=== PATIENT | male | born 1960 | race Caucasian/White ===

== ENCOUNTER → 2019-03-29 07:15 | Day surgery (SDC) | payer OTHER ==
--- NOTE | 2019-03-21 15:01 | HP ---
AMENDED REPORT NOW INCLUDES DESIGNATED COSIGNER - ESIGNED BEFORE ADJUSTMENTS CC: Dr. Orlin Trotter * PREOPERATIVE HISTORY AND PHYSICAL: DATE OF ADMISSION/SURGERY: 03/29/19 This patient is scheduled for same-day surgery admission by Dr. Rodriguez on 03/29/19. DATE OF PREOPERATIVE HISTORY AND PHYSICAL: 03/21/19. ATTENDING SURGEON: Dr. Alistair Rodriguez * (dictated by Yolanda Harrington NP). CHIEF COMPLAINT: Bilateral inguinal hernias. HISTORY OF PRESENT ILLNESS: The patient is a 58-year-old male who [facility] for evaluation regarding a right inguinal hernia. The patient states that he has had a right groin bulge for several years ; however, 2 weeks ago, he lifted something heavy and the bulge was painful for the first time. The bulge does reduce spontaneously. He denies any complaints of dysuria and has regular formed bowel movements without any change in his bowel habits. Dr. Rodriguez examined the patient and noticed bilateral inguinal hernias, right greater than left. Dr. Rodriguez has therefore recommended laparoscopic bilateral inguinal hernia repair with mesh. He described the nature of the surgical procedure, the rationale for the procedure, the relevant risks and benefits, and today, I reviewed the expected postoperative care and recovery. The patient has had a chance to ask questions and stated that he understands the information and is satisfied with the answers given to his questions. He will sign surgical consent on the day of surgery. PAST MEDICAL HISTORY: Significant for hypertension. PAST SURGICAL HISTORY: Multiple procedures for trigger fingers on both hands; thoracic surgery in childhood related to complications of staphylococcus pneumonia. MEDICATIONS: 1. Diovan 160 mg p.o. daily. 2. Simvastatin 20 mg p.o. daily. 3. Aspirin 81 mg p.o. daily, and he will hold that for 5 days preoperatively. 4. Fish oil 1200 mg p.o. daily, and he will hold that for 5 days preoperatively. ALLERGIES: No known drug allergies. FAMILY HISTORY: Father with a history of myocardial infarction. Mother is alive and generally well. No bleeding tendencies or clotting disorders in the family. The patient states that his sister has had slow recovery from general anesthesia. 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 He is a nonsmoker. He drinks 5 to 6 alcoholic beverages per week on average and denies the use of other substances. REVIEW OF SYSTEMS: Constitutional: No fevers, chills, excessive fatigue, or weight loss. Endocrine: No diabetes or thyroid disease. Hematologic: No easy bruising or bleeding, no history of blood transfusions. Respiratory: No dyspnea on exertion. No cough. Cardiovascular: No anginal chest pain or palpitations. Gastrointestinal: No nausea, vomiting, diarrhea, GI bleeding, constipation, or change in bowel habits. Genitourinary: Enlarged prostate, currently being followed by Dr. Babin. Musculoskeletal: Normal strength and tone. Neurologic: No headache, blurred vision, or areas of focal weakness. General: No previous anesthesia complications. No bleeding tendencies. No history of deep vein thrombosis or pulmonary embolism. He has never received a blood transfusion. PHYSICAL EXAMINATION GENERAL SURVEY: The patient is a 58-year-old male, well developed, well nourished, in no acute distress. VITAL SIGNS: Height 71.5 inches, weight 196 pounds. Blood pressure 120/82, pulse 68 and regular, respiratory rate 16, temperature 97.5 tympanic. HEENT: Benign. NECK: Supple. No cervical lymphadenopathy. LUNGS: Breath sounds bilaterally clear and equal. HEART: Regular rate and rhythm. No murmurs or rubs appreciated. ABDOMEN: Active bowel sounds. Soft, nondistended, nontender throughout. Small umbilical hernia palpated with the patient coughing. No other masses or organomegaly. Inguinal exam was done by Dr. Rodriguez and revealed bilateral inguinal hernias, right greater than left, that are reducible. BACK: No CVA tenderness. There is a well-healed surgical scar over the right scapular area. GENITALIA: Testicles are normally descended without lesion. RECTAL: Exam deferred. EXTREMITIES: Warm without edema or skin ulceration. NEUROLOGIC: Alert and oriented x3. Steady gait. SKIN: Warm, dry, intact. IMPRESSION: Bilateral inguinal hernias. PLAN: Same-day surgery admission to Dr. Rodriguez's service on 03/29/19 , for laparoscopic bilateral inguinal hernia repair with mesh. FAIZAN HARRINGTON, DEBBIE [id number]/[facility] #: [id number] MARIAN
[~2019-03-29 07:15] MED LIST: Buffered Lidocaine 1% SYRIN* 1 ML/SYRINGE INTRADERM ONE; Bupivacaine 0.25% W/EPI* 10 ML SDV ONE; Dexamethasone IV* 4 MG/ML 1 ML (4 MG) ONE; DiMENhydriNATE IV* 50 MG/ML VIAL IV PUSH PRN; Glycopyrrolate IV* 0.2 MG/ML 1 ML VIAL ONE; HYDROmorphone INJ1* 1 MG/ML SYRINGE IV PRN; Ketorolac INJ* 30 MG/ML 1 ML VIAL ONE; Lactated Ringers 1000 ML Bag* 1,000 ML IV SCH; Midazolam* 1 MG/ML 5 ML VIAL (5 MG) ONE; Naloxone* 0.4 MG/ML 1 ML VIAL IV PRN; Neostigmine Methylsulfate* 1 MG/ML 10 ML VIAL (1 mg/ml) ONE; Ondansetron INJ* 2 MG/ML VIAL IV PRN; Ondansetron INJ* 2 MG/ML VIAL ONE; Propofol* 10 MG/ML 20 ML BTL ONE; Rocuronium* 10 MG/ML VIAL ONE; ceFAZolin 2 GM in NS PREMIX(*) 2 GM/100 ML BAG IVPB ONE; fentaNYL* 50 MCG/ML 2 ML VIAL (100 MCG VIAL) IV PRN; fentaNYL* 50 MCG/ML 2 ML VIAL (100 MCG VIAL) ONE; oxyCODONE/Acetamin 5/325 MG* TAB ONE; oxyCODONE/Acetamin 5/325 MG* TAB PO PRN
[2019-03-29 12:59] VITALS: BP 117/83
--- NOTE | 2019-03-29 23:17 | OP ---
CC: Dr. Orlin Trotter * DATE OF OPERATION: 03/29/19 - [facility] DATE OF : 56 SURGEON: Alistair Rodriguez MD STAGE SET UP WORKER: Yolanda Wallace NP ANESTHESIOLOGIST: Dr. Samano. ANESTHESIA: General anesthesia. PRE-OP DIAGNOSIS: Bilateral inguinal hernia. POST-OP DIAGNOSIS: Bilateral inguinal hernia. OPERATIVE PROCEDURE: Laparoscopic bilateral inguinal hernia repair with mesh. ESTIMATED BLOOD LOSS: Minimal. FLUIDS: Minimal crystalloid fluid given. SPECIMEN: None. DRAINS: None. CATHETER: Garcia catheter placed at the time of surgery and removed at the end of surgery. COMPLICATIONS: None. DESCRIPTION OF PROCEDURE: The patient was identified in the preoperative area. He was marked. Consent was signed. His lower abdomen was clipped off hair. He was then taken to the operating room and placed on the operating table in supine position. Preoperative antibiotics were given. Sequential devices were placed on bilateral lower extremities. General anesthesia was induced. The patient's abdomen was prepped and draped in standard surgical fashion. A time- out was performed. An infraumbilical incision was made. This was deepened down through the anterior fascia, which was incised and the rectus pillar retracted laterally on the right side. We then entered the preperitoneal plane and blunt dissection was carried out down to the pubic symphysis. Next, a 12-mm blunt trocar was inserted and the preperitoneal space was allowed to insufflate to a pressure of 12 mmHg. The patient tolerated the insufflation well. Camera dissection was then carried out down to the pubic symphysis and cleared away at Moustapha's ligament bilaterally to make a small space to take 2 additional 5-mm trocars in the lower midline. With these trocars in place, attention was turned towards the left side. We freed up different adhesional area in the preperitoneal space with blunt dissection and then identified Moustapha's ligament on the right and left. On the left side, we were able to identify no evidence of a direct hernia. Direct space was clear. We then isolated the epigastric vessels anteriorly and opened up Bogros space laterally. Peritoneal reflection entered along the spermatic structures, which were skeletonized and the peritoneum reflected posterior as much as possible. A lipoma of the cord was then dissected free and placed posteriorly. Attention was then turned towards the right side. Dissection was carried out of this area as well with maintenance of the epigastric vessels anteriorly. We cleared off the space of Bogros laterally as well. There was no evidence of a direct hernia, but again an indirect small hernia was identified and with gentle traction was freed up from the spermatic structures, which were also skeletonized. Full myopectineal orifice was identified and was free of any peritoneum extending towards these areas and we knew we could place the mesh in safely. Next, a medium sized Bard right side mesh 3DMax was then placed into the preperitoneal space, allowed to unfurl, tacked at Moustapha's ligament and also laterally covering the myopectineal orifice. Next, a large left side 3DMax mesh was then inserted and tacked in a similar fashion, making sure that they crossed the midline. The preperitoneal space was allowed to collapse. Trocars were removed under direct vision. Next, the posterior fascia was incised at the umbilical site and entry to the abdominal cavity was made. The 12-mm blunt trocar was then inserted along with laparoscope after the abdomen was allowed to insufflate to a pressure of 15 mmHg. Once the camera was in place, there was no evidence of pneumoperitoneum. The abdomen was placed in a Trendelenburg fashion and the mesh around the right appeared intact without any curling. There was a small curl on the mesh on the left. For this reason, a 5-mm trocar was inserted and we were able to tease this into the appropriate formation at the inferior aspect of the mesh. Once we were felt comfortable with the placement, there was no evidence of injury to the peritoneum at the site of the meshes, we then allowed the abdomen to collapse. Trocars removed under direct vision. The posterior fascia was reapproximated with 2-0 Vicryl sutures and the anterior fascia closed with 0 Vicryl sutures. The wound was irrigated and all 3 incisions were reapproximated with 4-0 Monocryl subcuticular sutures followed by Steri-Strips and sterile dressing. He was woken up in the OR and transferred to the PACU in stable condition. [id number]/[facility] #: [id number] MARIAN
== END | disposition home or self-care (01) ==
LOC: OR 07:15
PROVIDERS: ATTEND Surgery
DX: K40.20 Bilateral inguinal hernia, without obstruction or gangrene, not specified as recurrent (principal); I10 Essential (primary) hypertension; E78.00 Pure hypercholesterolemia, unspecified
CPT/HCPCS: A9270-GY; C1781; J0690; J1100; J1885; J2250; J2405; J2704; J2710; J3010

== ENCOUNTER 2019-04-30 10:11 | Emergency (ER) | payer OTHER ==
--- OUTSIDE RECORDS SUMMARY | 2019-04-30 10:42 | XMS REPORT | Continuity of Care Document ---
:1960 External Reference #:[id number] Author Name Alistair Rodriguez MD, FACS (transmitted by agent of provider Norma Calzada) Address [address] [address] Care Team Providers Name Role Phone Víctor Millan MD - Gastroenterology Care Team Information Solar Installation Foreman Alistair Rodriguez MD - Surgery Care Team Information Solar Installation Foreman [phone] Problems Active Problems Provider Date Benign essential hypertension Orlin Trotter M.D. Onset: 09/16/2011 Pure hypercholesterolemia Orlin Trotter M.D. Onset: 09/16/2011 Impaired fasting glycaemia Orlin Trotter M.D. Onset: 09/16/2011 Social History Type Date Description Comments Sex Unknown Tobacco Use Start: Unknown Never Smoked Cigarettes ETOH Use Currently consumes alcohol ETOH Use Drinks 1 Alcoholic Beverage Per Day Tobacco Use Start: Unknown Patient has never smoked Recreational Drug Use Denies Drug Use Smoking Status Reviewed: 04/07/19 Patient has never smoked Exercise Type/Frequency Exercises sporadically Pt walking on occ, but not tracking time Allergies, Adverse Reactions, Alerts Description No Known Drug Allergies Medications Active Medications SIG Qnty Indications Ordering Provider Date Simvastatin 1 by mouth 90tabs Orlin Trotter, 10/30/2013 20mg Tablets every day M.D. Diovan 1 by mouth 90tabs Orlin Trotter, 10/30/2013 160mg Tablets every day M.D. Multivitamins 1 PO qd Orlin Trotter, 10/10/2007 Tablets M.D. Fish Oil 1 po qd Unknown 1200mg Capsules Asa 1 po qd Unknown 81mg History Medications Hydrocodone-Acetaminophen 1 tab by 8tabs Yolanda Walsh 03/21/2019 - 5-325mg Tablets mouth every 6 [place], BATH MIXER Unknown hours as needed for pain Medications Administered in Office Medication SIG Qnty Indications Ordering Provider Date Influenza Virus Vaccine Unknown 05/30/2015 Injection Influenza Virus Vaccine Unknown 05/30/2014 Injection Immunizations CPT Code Status Date Vaccine Lot # [id number] Given 10/30/2013 Tdap - Tetanus/Diptheria/Acellular Pertussis [id number] Given 07/02/2013 Hepatitis B Vaccine Adult Dosage [id number] Given 05/30/2013 Hepatitis B Vaccine Adult Dosage 83917 Given 05/30/2013 Hepatitis A Vaccine Adult Dosage 26641 Given 05/16/2005 Tetanus And Diptheria (Td) For Adult Use Preservative Free Vital Signs Date Vital Result Comment 04/07/2019 1:22pm Heart Rate 72 /min BP Systolic 122 mmHg BP Diastolic 74 mmHg Respiratory Rate 18 /min Body Temperature 97.2 F 03/21/2019 10:29am Weight 196.00 lb Heart Rate 68 /min BP Systolic 120 mmHg BP Diastolic 82 mmHg Respiratory Rate 16 /min Body Temperature 97.5 F Results Test Date Facility Test Result H/L Range Note Laboratory test 03/08/2019 [facility] PSA Diagnostic 8.482 ng/ mL High 0-4.0 1 [address] [place] [address] [phone] Urinalysis 01/03/2019 [facility] Urine Color Yellow Profile [address] [place] [address] [phone] Urine Appearance Clear Urine Specific [place] 1.009 Low 1.010-1.030 Urine pH 7.0 Normal 5-9 Urine Urobilinogen Negative Negative Urine Ketones Negative Negative Urine Protein Negative Negative Urine Leukocytes Negative Negative Urine Blood Negative Negative Urine Nitrite Negative Negative Urine Bilirubin Negative Negative Urine Glucose Negative Negative Laboratory 01/03/2019 [facility] TSH (Thyroid 1.57 Normal 0.34 -5.[address]) mcIU/[place] [address] [phone] Lipid Profile 12/27/2018 [facility] Triglycerides 59 mg/dL 2 (Trig/Chol/HD [address] [place] [address] [phone] Cholesterol 135 mg/dL 3 HDL Cholesterol 53.8 mg/dL 4 LDL Cholesterol 69 mg/dL 5 Comp Metabolic 12/27/2018 [facility] Sodium 136 mmol/L Normal 135-145 Panel [address] [place] [address] [phone] Potassium 4.6 mmol/L Normal 3.5-5.0 Chloride 104 mmol/L Normal 101-111 Co2 Carbon Dioxide 28 mmol/L Normal 22-32 Anion Gap 4 mmol/L Normal 2-11 Glucose 100 mg/dL Normal 70-100 Blood Urea Nitrogen 13 mg/dL Normal 6-24 Creatinine 1.03 mg/dL Normal 0.67-1.17 BUN/Creatinine Ratio 12.6 Normal 8-20 Calcium 9.5 mg/dL Normal 8.6-10.3 Total Protein 7.0 g/dL Normal 6.4-8.9 Albumin 4.5 g/dL Normal 3.2-5.2 Globulin 2.5 g/dL Normal 2-4 Albumin/Globulin Ratio 1.8 Normal 1-3 Total Bilirubin 0.60 mg/dL Normal 0.2-1.0 Alkaline Phosphatase 41 U/L Normal 34-104 Alt 11 U/L Normal 7-52 Ast 22 U/L Normal 13-39 Egfr Non- 73.7 >60 Egfr 89.1 >60 6 Laboratory 12/27/2018 [facility] PSA Screening 7.331 ng/mL High 0-4.000 7 test finding [address] [place] [address] [phone] Lyme Disease 12/27/2018 [facility] IgG Immunoblot Negative Negative AB Immunoblot [address] [facility] [place] [address] [phone] IgG detected against p45,p39 kDa IgM Immunoblot Uninterpretable Abnormal Negative 8 Lyme Disease Interpretation See Comment 9 Laboratory test 11/03/2018 [facility] PSA Diagnostic 11.540 High 0-4.0 10 finding [address] [facility] ng/[place] [address] [phone] 1 Serum levels of PSA measured using the Levi Promimic DXI Hybritech immunoassay should not be interpreted as absolute evidence of the presence or absence of disease. The PSA value should be used in conjunction with other pertinent clinical diagnostic procedures. The values obtained with different assay methods or kits cannot be used interchangeably. 2 Desirable: <150 Borderline High: 150-199 High: 200-499 Very High: >500 3 Desirable: <200 Borderline High: 200-239 High: >239 4 Low: <40 Desirable: 40-60 High: >60 5 Desirable: <100 Near Optimal: 100-129 Borderline High: 130-159 High: 160-189 Very High: >189 6 Because ethnic data is not always readily available, this report includes an eGFR for both -Americans and non- Americans. The National Kidney Disease Education Program (NKDEP) does not endorse the use of the MDRD equation for patients that are not between the ages of 18 and 70, are , have extremes of body size, muscle mass, or nutritional status, or are non- or non-. According to the National Kidney Foundation, irrespective of diagnosis, the stage of the disease is based on the level of kidney function: Stage Description GFR(mL/min/1.73 m(2)) 1 Kidney damage with normal or decreased GFR 90 2 Kidney damage with mild decrease in GFR 60-89 3 Moderate decrease in GFR 30-59 4 Severe decrease in GFR 15-29 5 Kidney failure <15 (or dialysis) 7 Serum levels of PSA measured using the Levi Promimic DXI Hybritech immunoassay should not be interpreted as absolute evidence of the presence or absence of disease. The PSA value should be used in conjunction with other pertinent clinical diagnostic procedures. The values obtained with different assay methods or kits cannot be used interchangeably. 8 Immunoblot invalid due to blurring or indistinct reactivity. 9 Due to an invalid Lyme IgM immunoblot, an interpretation cannot be provided. Please submit a new specimen. ADDITIONAL INFORMATION Per CDC criteria, the Lyme IgG Immunoblot is interpreted as positive if IgG-class antibodies are detected to >=5 B. burgdorferi proteins, and the Lyme IgM Immunoblot is interpreted as positive if IgM-class antibodies are detected to >=2 B. burgdorferi proteins. Immunoblot patterns not meeting these criteria should not be interpreted as positive. Epitopes from certain B. burgdorferi proteins (e.g., p41) are conserved across other bacteria, which may lead to the detection of IgM- and/or IgG-class antibodies on the Lyme disease immunoblots in patients without Lyme disease. Immunoblot should only be ordered on specimens that are positive or equivocal by a FDA-licensed Lyme disease antibody screening test (e.g., EIA). Results of the Lyme IgM immunoblot should not be considered in patients with >= 30 days of symptoms. Test Performed by: [facility] [address] [place] [address] 10 Serum levels of PSA measured using the Levi Promimic DXI Hybritech immunoassay should not be interpreted as absolute evidence of the presence or absence of disease. The PSA value should be used in conjunction with other pertinent clinical diagnostic procedures. The values obtained with different assay methods or kits cannot be used interchangeably. Procedures Date Code Description Status 03/29/2019 55288 Laparoscopy, Surgical Repair Initial Inguinal Hernia Completed 03/29/2019 09445 Laparoscopy, Surgical Repair Initial Inguinal Hernia Completed 03/20/2019 [id number] Colonoscopy Completed 03/07/2009 [id number] Colonoscopy Completed Medical Devices Description No Information Available Encounters Type Date Location Provider Dx Diagnosis Office Visit 02/27/2019 [facility] Alistair Rodriguez, K40.00 Bi inguinal 11:15a Of Bernarda JIMÉNEZ, [place] hernia, w obst, w/o gangrene, not spcf as recur Office Visit 02/21/2019 Bernarda Odell K40.90 Unil inguinal 10:00a Jacoby Trotter M.D. hernia, w/o obst or gangr, not spcf as recur Office Visit 01/03/2019 Bernarda Odell Z00.00 Encntr for 10:20a Jacoby Trotter M.D. general adult medical exam w/o abnormal findings I10 Essential (primary) hypertension E78.00 Pure hypercholesterolemia, unspecified R73.01 Impaired fasting glucose R97.20 Elevated prostate specific antigen [PSA] Z12.11 Encounter for screening for malignant neoplasm of colon Assessments Date Code Description Provider 04/07/2019 K40.20 Bilateral inguinal hernia, without Alistair Rodriguez MD, [place] obstruction or gangrene, not specified as recurrent 03/29/2019 K40.20 Bilateral inguinal hernia, without Yolanda Wallace , DEBBIE obstruction or gangrene, not specified as recurrent 03/29/2019 K40.20 Bilateral inguinal hernia, without Alistair Rodriguez MD, FACS obstruction or gangrene, not specified as recurrent 03/21/2019 K40.00 Bilateral inguinal hernia, with Yolanda Wallace NP obstruction, without gangren 03/21/2019 Z01.818 Encounter for other preprocedural Yolanda Wallace NP examination 02/27/2019 K40.00 Bilateral inguinal hernia, with Alistair Rodriguez MD, FACS obstruction, without gangren 02/21/2019 K40.90 Unilateral inguinal hernia, without Orlin Trotter M.D. obstruction or gangrene, 01/03/2019 Z00.00 Encounter for general adult medical Orlin Trotter M.D. examination without abno 01/03/2019 I10 Essential (primary) hypertension Orlin Trotter M.D. 01/03/2019 E78.00 Pure hypercholesterolemia, unspecified Orlin Trotter M.D. 01/03/2019 R73.01 Impaired fasting glucose Orlin Trotter M.D. 01/03/2019 R97.20 Elevated prostate specific antigen Orlin Trotter M.D. [PSA] 01/03/2019 Z12.11 Encounter for screening for malignant Orlin Trotter M.D. neoplasm of colon Plan of Treatment Future Appointment(s):07/10/2019 9:00 am - Alistair Rodriguez MD, FACS at [facility]04/07/2019 - Alistair Rodriguez MD, FACSK40.20 Bilateral inguinal hernia, without obstruction or gangrene, not specified as recurrentFollow up:3 months Goals 04/07/2019 - Alistair Rodriguez MD, FACSK40.20 Bilateral inguinal hernia, without obstruction or gangrene, not specified as recurrent no heavy lifting over 30 lbs for 2 weeks Functional Status Description No Information Available Mental Status Description No Information Available Referrals Refer to Reason for Referral Status Appt Date Alistair Rodriguez MD R inguinal hernia Sent 03/21/2019 [address] [facility] [address] [phone] Víctor Millan MD due for a repeat colon exam Received Partial 03/20/[address] [place] [address] [phone]
--- NOTE | 2019-04-30 11:20 | ED ---
Abdominal Pain/Male - HPI Summary HPI Summary: This patient is a 58 year old M presenting to [facility] accompanied by with a chief complaint of left abdominal pain since night of 04/29/19. Pt originally thought he had a bladder infection, and called his urologist. Who prescribed antibiotic and told him to go to [facility] care if the pain worsened. Today the pain had migrated to the back. Pt went to convenient care and they told him to come to the ED. Pt has not taken any antibiotics. Patient reports nml BM. Patient denies nausea, urinary symptoms. The patient rates the pain 3/10 in severity. Symptoms aggravated by palpation. Pt had a hernia surgery on 03/29/19. - History of Current Complaint Chief Complaint: EDAbdPain Stated Complaint: ABD/FLANK PAIN PER PT Time Seen by Provider: 04/30/19 10:58 Hx Obtained From: Patient Onset/Duration: Sudden Onset, Lasting Days, Still Present Timing: Constant Severity Initially: Mild Severity Currently: Mild Pain Intensity: 3 Pain Scale Used: 0-10 Numeric Location: Discrete At: LLQ Radiates: Yes Radiates to: Back Aggravating Factor(s): Other: - palpation Alleviating Factor(s): Nothing Associated Signs And Symptoms: Positive: Back Pain. Negative: Urinary Symptoms , Nausea, Diarrhea - Allergies/Home Medications Allergies/Adverse Reactions: Allergies Allergy/AdvReac Type Severity Reaction Status Date / Time No Known Allergies Allergy Verified 04/30/19 10:35 PMH/Surg Hx/FS Hx/Imm Hx Cardiovascular History: Reports: Hx Hypertension - ON MEDICATION History: Reports: Other Problems/Disorders - enlarged prostate Sensory History: Reports: Hx Contacts or Glasses - glasses Denies: Hx Hearing Aid Opthamlomology History: Reports: Hx Contacts or Glasses - glasses - Cancer History Hx Chemotherapy: No - Surgical History Surgery Procedure, Year, and Place: PREVIOUS TRIGGER FINGER SURGERIES. GANGLION CYST REMOVED. THORACIC SURGERY- RIB REMOVED AGE 10. hernia surgery, 2019 Hx Anesthesia Reactions: No Infectious Disease History: No Infectious Disease History: Denies: Traveled Outside the [place] in Last 30 Days - Family History Known Family History: Positive: Hypertension, Other - diverticulitis - Social History Lives: With Family Alcohol Use: Occasionally Substance Use Type: Reports: None Smoking Status (MU): Never Smoked Tobacco Review of Systems Positive: Abdominal Pain. Negative: Diarrhea, Nausea Negative: pain Positive: Other - pos - back pain All Other Systems Reviewed And Are Negative: Yes Physical Exam - Summary Physical Exam Summary: Appearance: The patient is well-nourished in no acute distress and in no acute pain. Skin: The skin is warm and dry, and skin color reflects adequate perfusion. HEENT: The head is normocephalic and atraumatic. The pupils are equal and reactive. The conjunctivae are clear and without drainage. Nares are patent and without drainage. Mouth reveals moist mucous membranes, and the throat is without erythema and exudate. The external ears are intact. The ear canals are patent and without drainage. The tympanic membranes are intact. Neck: The neck is supple with full range of motion and non-tender. There are no carotid bruits. There is no neck vein distension. Respiratory: Chest is non-tender. Lungs are clear to auscultation and breath sounds are symmetrical and equal. Cardiovascular: Heart is regular rate and rhythm. There is no murmur or rub auscultated. There is no peripheral edema and pulses are symmetrical and equal. Abdomen: The abdomen is soft. LLQ tenderness. There are normal bowel sounds heard in all four quadrants and there is no organomegaly palpated. Musculoskeletal: There is no back tenderness noted. Extremities are non-tender with full range of motion. There is good capillary refill. There is no peripheral edema or calf tenderness elicited. Neurological: Patient is alert and oriented to person, place and time. The patient has symmetrical motor strength in all four extremities. Cranial nerves are grossly intact. Deep tendon reflexes are symmetrical and equal in all four extremities. Psychiatric: The patient has an appropriate affect and does not exhibit any anxiety or depression. Triage Information Reviewed: Yes Vital Signs On Initial Exam: Initial Vitals Temp Pulse Resp BP Pulse Ox 99.2 F 74 16 147/100 97 04/30/19 10:30 04/30/19 10:30 04/30/19 10:30 04/30/19 10:30 04/30/19 10:30 Vital Signs Reviewed: Yes Diagnostics - Vital Signs Vital Signs Temp Pulse Resp BP Pulse Ox 04/30/19 10:30 99.2 F 74 16 147/100 97 - Laboratory Result Diagrams: 04/30/19 11:25 04/30/19 11:24 Lab Statement: Any lab studies that have been ordered have been reviewed, and results considered in the medical decision making process. - CT Abdomen/Pelvis CT CT Interpretation Completed By: Radiologist Summary of CT Findings: Abdomen/Pelvis CT reveals, per radiologist, IMPRESSION: Diverticulitis of the sigmoid colon. No evidence of peridiverticular abscess is noted. No obstructive uropathy is noted. ED physician has reviewed this radiology report. Re-Evaluation - Re-Evaluation First Eval Re-Evaluation Time: 12:47 Comment: Discussed result and plan of care with pt. Abdominal Pain Male Course/Dx - Course Course Of Treatment: Mr. Murphy was found to have some diverticulitis on CT scan. His labs were consistent with mild leukocytosis and CRP elevation. I recommended antibiotics and warned him against using alcohol with metronidazole. - Diagnoses Provider Diagnoses: Diverticulitis Discharge ED - Sign-Out/Discharge Documenting (check all that apply): Patient Departure - Discharge Patient Received Moderate/Deep Sedation with Procedure: No - Discharge Plan Condition: Stable Disposition: HOME Prescriptions: Ciprofloxacin TAB* [Cipro Tab*] 500 mg PO BID #20 tab metroNIDAZOLE [Flagyl 500 MG TAB] 500 mg PO TID #30 tab Patient Education Materials: Diverticulitis (ED) Referrals: Orlin Trotter MD [Primary Care Provider] - 3 Days Additional Instructions: Follow up with Primary Care Physician in 2-3 days. RETURN TO THE ED FOR ANY NEW OR WORSENING SYMPTOMS. - Billing Disposition and Condition Condition: STABLE Disposition: Home - Attestation Statements Document Initiated by Sergey: Yes Documenting Scribe: Delaney Tsai Provider For Whom Sergey is Documenting (Include Credential): Dr. Aniket Huff MD Scribe Attestation: Delaney Reeves scribed for Dr. Aniket Huff MD on 04/30/19 at 1348. Scribe Documentation Reviewed: Yes Provider Attestation: The documentation as recorded by the Delaney salas accurately reflects the service I personally performed and the decisions made by me, Dr. Aniket Huff MD Status of Scribe Document: Viewed
[2019-04-30 11:37] LABS: Hematocrit 49 % (42-52); Hemoglobin 16.2 g/dL (14.0-18.0); Mean Corpuscular HGB Conc 33 g/dL (31-36); Mean Corpuscular Hemoglobin 30 pg (27-31); Mean Corpuscular Volume 91 fL (80-94); Mean Platelet Volume 6.5 fL (7.4-10.4); Platelet Count 271 10^3/uL (150-450); Red Blood Count 5.38 10^6 /uL (4.18-5.48); Red Cell Distribution Width 13 % (10-15); White Blood Count 13.4 10^3/uL (3.5-10.8)
[2019-04-30 11:45] LABS: Albumin 4.5 g/dL (3.2-5.2); Calcium 9.9 mg/dL (8.6-10.3); Potassium 4.3 mmol/L (3.5-5.0)
[2019-04-30 11:49] LABS: ABS Neutrophils 10.3 10^3/ul (1.5-7.7)
[2019-04-30 11:51] LABS: Albumin/Globulin Ratio 1.6 (1-3); BUN/Creatinine Ratio 9.8 (8-20); C Reactive Protein 59.7 mg/L (<8.01); EGFR African American 90.1 (>60); EGFR Non-African American 74.5 (>60); Globulin 2.9 g/dL (2-4); Total Protein 7.4 g/dL (6.4-8.9)
[2019-04-30 11:52] LABS: Urine Appearance Clear; Urine Bacteria 1+ (Absent); Urine Bilirubin Negative (Negative); Urine Blood 1+ (Negative); Urine Color Straw; Urine Glucose Negative (Negative); Urine Ketones Negative (Negative); Urine Nitrite Negative (Negative); Urine Protein Negative (Negative); Urine Red Blood Cell Trace(0-2/hpf) (Absent); Urine Specific Gravity 1.002 (1.010-1.030); Urine Urobilinogen Negative (Negative); Urine White Blood Cell Trace(0-5/hpf) (Absent)
[2019-04-30 12:09] LABS: ABS Lymphocytes 1.3 10^3/ul (1.0-4.8); ABS Monocytes 1.7 10^3/ul (0-0.8); Eosinophil % 0.3 %; Lymphocyte % 9.4 %
[2019-04-30 13:03] VITALS: BP 168/94
== END 2019-04-30 13:02 | disposition home or self-care (01) ==
LOC: ED 10:11
DX: K57.92 Diverticulitis of intestine, part unspecified, without perforation or abscess without bleeding (principal); I10 Essential (primary) hypertension; N40.0 Benign prostatic hyperplasia without lower urinary tract symptoms; Z79.82 Long term (current) use of aspirin; Z79.899 Other long term (current) drug therapy
CPT/HCPCS: 36415; 74176; 80053; 81003; 81015; 83605; 85025; 86140; 87086; 99282

== ENCOUNTER → 2019-09-15 09:09 | Day surgery (SDC) | payer OTHER ==
--- NOTE | 2019-08-29 09:45 | HP ---
CC: Dr. Orlin Trotter * ADMISSION HISTORY AND PHYSICAL: DATE OF ADMISSION/SURGERY: 09/15/19 ATTENDING SURGEON: Dr. Matteo Rodriguez.* (DICTATED BY TYLER CONTRERAS) CHIEF COMPLAINT: Recurrent right inguinal hernia. HISTORY OF PRESENT ILLNESS: This is a 58-year-old male who underwent laparoscopic repair of bilateral inguinal hernias with Dr. Rodriguez on 03/29/19. His initial postoperative course was unremarkable. He was treated for a bout of acute diverticulitis somewhere around 4 to 6 weeks postoperatively. Subsequently, he noticed both the intermittent presence of a bulge in the right groin as well as occasional discomfort. This discomfort has actually been painful, particularly with more strenuous activities such as pulling snow off of his roof. He has not had any symptoms to suggest incarceration or strangulation. He was seen subsequently by Dr. Rodriguez for evaluation. The CT scan at the time of diagnosis of diverticulitis was also reviewed indicating the presence of a small recurrence on the right side. Dr. Rodriguez has discussed with him the options including continued watchful waiting versus surgical intervention. The patient understands the indications, risks, benefits, and alternatives of the surgery and would like to proceed as scheduled with open repair of recurrent right inguinal hernia with mesh. PAST MEDICAL HISTORY: 1. Hypertension. 2. Hyperlipidemia. 3. Diverticulosis/diverticulitis. 4. BPH with prior positive biopsy for prostate cancer (being treated by close observation and serial PSAs). PAST SURGICAL HISTORY: Previous surgeries include the laparoscopic bilateral inguinal hernia repair with mesh as noted above. He has also undergone multiple trigger finger releases. 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 CURRENT MEDICATIONS: 1. Diovan 160 mg once daily. 2. Zocor 20 mg once daily. 3. Fish oil once daily. 4. Aspirin 81 mg every other day. 5. Multivitamin once daily (the patient instructed to hold fish oil for 3 days and aspirin for 7 days preoperatively). DRUG ALLERGIES: None known. FAMILY HISTORY: Negative for anesthesia problems, bleeding or clotting disorders. SOCIAL HISTORY: The patient is . He is a mechanical research engineer. He denies use of tobacco. He drinks approximately 4 to 5 beers per week. He denies any recreational drug use. REVIEW OF SYSTEMS: General: No recent constitutional symptoms or acute illnesses. His weight has been stable. HEENT: No problems reported. Cardiovascular: He was treated for hypertension. No chest pain, palpitations, or history of heart murmur. Respiratory: No history of asthma, chronic cough, or shortness of breath. GI: No problems reported. Colonoscopy done in January of 2019 and other than diverticular disease, was apparently a normal study. : He is followed by Dr. Babin for serial PSAs and observation of his BPH and prostate cancer. Endocrine: No diabetes or thyroid dysfunction. PHYSICAL EXAMINATION GENERAL: Well-nourished, well-developed male in no acute distress. VITAL SIGNS: Height 6 feet, weight 200 pounds, temperature 97.9, blood pressure 130/70, pulse 78, and respirations 16. HEENT: Pupils equal and round, reactive. EOMs intact. No conjunctival pallor. Oropharynx: Teeth in good repair. No intraoral lesions. NECK: No lymphadenopathy, thyromegaly, or masses. LUNGS: Clear to auscultation. No rales or wheezes. HEART: Regular rate and rhythm. No murmur noted. ABDOMEN: Soft, nontender to palpation. No palpable masses or organomegaly. Per Dr. Rodriguez's exam, recurrent right inguinal hernia (I was unable to confirm this on today's exam). BACK: No spinous process or CVA tenderness. EXTREMITIES: No edema. GENITALIA: Otherwise normal. Testes normal. RECTAL: Not done. NEUROLOGICAL: Grossly intact. SKIN: Warm and dry. No suspicious rashes or lesions noted. IMPRESSION: Recurrent right inguinal hernia. PLAN: Open repair recurrent right inguinal hernia with mesh. TYLER CONTRERAS [id number]/[facility] #: [id number] MARIAN
[~2019-09-15 09:09] MED LIST changes: +Acetaminophen IV 1GM/100ML * 100 ML ONE; +Bupivacaine 0.25% EPI 200,000* 30 ML SDV ONE; -Bupivacaine 0.25% W/EPI* 10 ML SDV ONE; +Dexamethasone TAB* 4 MG ONE; +Dexamethasone TAB* 4 MG PO ONE; +EPHEDrine (Pressors)* 50 MG/ML VIAL ONE; +Famotidine IV* 10 MG/ML 2 ML (20 mg) IV ONE; +Famotidine IV* 10 MG/ML 2 ML (20 mg) ONE; +KETAMINE HCL* 50 MG/ML 10 ML VIAL ONE; +Lidocaine 1% INJ* 10 MG/ML 30 ML SDV ONE; +Lidocaine 2% PF * 5 ML VIAL ONE; -Neostigmine Methylsulfate* 1 MG/ML 10 ML VIAL (1 mg/ml) ONE; -Ondansetron INJ* 2 MG/ML VIAL IV PRN; -Ondansetron INJ* 2 MG/ML VIAL ONE; +Ondansetron ODT TAB* 4 MG ONE; +Ondansetron ODT TAB* 4 MG PO ONE; +PROCHLORPERAZINE INJ 5 MG/ML 2 ML VIAL IV PRN; +Phenylephrine 10 MG/ML VIAL* 1 ML VIAL ONE; +Phenylephrine 40 MCG/ML SYRINGE ONE; -Rocuronium* 10 MG/ML VIAL ONE; +ceFAZolin 2 GM PREMIX in ORs 2 GM/50 ML BAG ONE; -ceFAZolin 2 GM in NS PREMIX(*) 2 GM/100 ML BAG IVPB ONE; +oxyCODONE TAB* 5 MG TAB ONE; +oxyCODONE TAB* 5 MG TAB PO PRN; -oxyCODONE/Acetamin 5/325 MG* TAB ONE; -oxyCODONE/Acetamin 5/325 MG* TAB PO PRN
--- NOTE | 2019-09-15 13:35 | OP ---
Operative Report - Blank - Operative Report Date of Operation: 09/15/19 Note: Pre-OP Diagnoses: Recurrent Right inguinal hernia Post-op Diagnosis: same Procedure: open Right inguinal hernia repair with mesh Surgeon: Michael Asst: Sofiya Anethesia: AMALIA Murphy EBL: min IVF: see anesth record Specimen: lipoma Drains: none
[2019-09-15 15:19] VITALS: BP 111/71
--- NOTE | 2019-09-16 03:00 | OP ---
CC: Primary Care Doctor; [facility] OPERATIVE REPORT: DATE OF OPERATION: 09/15/19 DATE OF : 56 SURGEON: Alistair Rodriguez MD SUPERVISOR CONTACT LENS: Dr. Arriaza. ANESTHESIOLOGIST: Dr. Murphy. ANESTHESIA: General anesthesia. PRE-OP DIAGNOSIS: Recurrent right inguinal hernia. POST-OP DIAGNOSIS: Recurrent right inguinal hernia. OPERATIVE PROCEDURE: Open right inguinal hernia repair with mesh. ESTIMATED BLOOD LOSS: Minimal. FLUIDS: Minimal crystalloid fluid given. SPECIMEN: Lipoma of cord. DRAINS: None. DESCRIPTION OF PROCEDURE: The patient was identified in the preoperative area. He was marked, broug ht to the operating room, placed on the operating room table in supine position. Preoperative antibi otics were given. Sequential devices were placed in bilateral lower extremities. General anesthesia was induced. The patient's right groin was prepped and draped in the standard surgical fashion after clipping of h air and a time-out was performed. Inguinal incision was made. This was deepened down through Braulio and Camper's fascia down to computer aide al oblique aponeurosis. This was cleared off inferiorly and also medially. We then incised along th e direction of the fibers and made flaps cephalad and caudad. The spermatic structures were isolated around a Tien drain, and omentum, the cord structures were isolated and dissected free. This was ligated right at the internal ring. I did not see peritoneal structures in the site. We then passe d it off as specimen and turned out attention to the floor of the inguinal canal. There was softness medially where it appeared to be hernia medial to the previously placed mesh. This was cleared off and we made the decision to place an onlay ProGrip mesh. This was sutured to the pubic tubercle and unfurled in appropriate fashion to surround the spermatic cord and extended under the external obliqu e aponeurosis distally. It laid superiorly over the transversalis fascia and a single suture was peyman scott there as well, as well as one on the shelving edge of the inguinal canal. The wound was then irr igated. Hemostasis achieved. It should be noted that ilioinguinal nerve was isolated and ligated. W e then reapproximated the external oblique with running 2-0 Vicryl suture and then closed the incisio n in the standard fashion. Steri-Strips and sterile dressing were applied. The patient tolerated th e procedure well and was transferred to the PACU in stable condition. [id number]/[facility] #: [id number]
== END | disposition home or self-care (01) ==
LOC: OR 09:09
PROVIDERS: ATTEND Surgery
DX: K40.91 Unilateral inguinal hernia, without obstruction or gangrene, recurrent (principal); I10 Essential (primary) hypertension; E78.5 Hyperlipidemia, unspecified; K57.92 Diverticulitis of intestine, part unspecified, without perforation or abscess without bleeding; N40.0 Benign prostatic hyperplasia without lower urinary tract symptoms; Z79.82 Long term (current) use of aspirin
CPT/HCPCS: 88304; A9270-GY; C1781; J0690; J1100; J1885; J2250; J2704; J3010; J8540